=== PATIENT | female | born 1995 | race Caucasian/White ===

== ENCOUNTER 2018-10-05 21:47 | Emergency (ER) | payer OTHER ==
[~2018-10-05] VITALS: Ht 157.5 cm; Wt 48.1 kg
[2018-10-05 21:55] VITALS: Ht 157.5 cm; Wt 48.1 kg
[2018-10-06 00:44] VITALS: BP 109/72
== END 2018-10-06 00:44 | disposition home or self-care (01) ==
LOC: ED 21:47
DX: S92.425A Nondisplaced fracture of distal phalanx of left great toe, initial encounter for closed fracture (principal); S92.535A Nondisplaced fracture of distal phalanx of left lesser toe(s), initial encounter for closed fracture; S91.112A Laceration without foreign body of left great toe without damage to nail, initial encounter; W20.8XXA Other cause of strike by thrown, projected or falling object, initial encounter; Y93.89 Activity, other specified; Y92.89 Other specified places as the place of occurrence of the external cause; Y99.0 Civilian activity done for income or pay
CPT/HCPCS: J0696; J2270; Q0092